=== PATIENT | female | born 1995 | race Caucasian/White ===

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

== ENCOUNTER 2017-05-05 17:55 | Emergency (ER) | payer OTHER ==
[~2017-05-05] VITALS: Ht 162.6 cm; Wt 57.6 kg
[~2017-05-05 17:55] MED LIST changes: +DEPO-ESTRAD5 MG/1 ML IM; +MOBIC7.5 MG PO; +PREDNISONE 20 M20 MG PO; +XANAX 0.25 MG0.25 MG PO
[2017-05-05 18:10] LABS: URINE BILIRUBIN NEGATIVE (Negative); URINE BLOOD NEGATIVE (Negative); URINE COLOR YELLOW; URINE GLUCOSE-RANDOM* NEGATIVE (Negative); URINE KETONES NEGATIVE (Negative); URINE NITRITE NEGATIVE (Negative); URINE PROTEIN (DIPSTICK) NEGATIVE (Negative); URINE UROBILINOGEN 0.2 E.U./dl (0.2-1.0)
[2017-05-05 19:04] LABS: ABSOLUTE NEUTROPHILS 4.9 thou/uL (1.4-8.2); BASOPHILS 0.5 % (0.0-2.0); EOSINOPHILS 0.8 % (0.0-3.0); LYMPHOCYTES 41.9 % (24.0-44.0); MCH 30.1 pg (26.0-34.0); MCHC 34.1 g/dL (28.0-37.0); MCV 88.1 fL (80.0-100.0); MONOCYTES 6.6 % (1.0-8.0); PLATELET COUNT 321 thou/uL (150-400); POLYS 50.2 % (36.0-66.0); RBC 4.66 mil/uL (4.20-5.00); RDW 12.9 % (10.5-14.5); WBC 9.7 thou/uL (4.0-11.0)
[2017-05-05 19:07] LABS: MANUAL DIFF NO
[2017-05-05 19:12] LABS: CALCIUM 9.7 mg/dL (8.5-10.1); CREATININE 0.6 mg/dL (0.6-1.0); POTASSIUM 3.2 mmol/L (3.5-5.1)
[2017-05-05 19:18] LABS: ALBUMIN 4.4 g/dL (3.4-5.0); TOTAL BILIRUBIN 0.3 mg/dL (<0.1-1.0); TOTAL PROTEIN 7.5 g/dL (6.4-8.2)
[2017-05-05] MEDS ORDERED: BEANO300 UNIT PO (19:38)
[2017-05-05 19:52] VITALS: BP 123/76
== END 2017-05-05 19:53 | disposition home or self-care (01) ==
LOC: ER 17:55
PROVIDERS: Physician Assistant
DX: R14.0 Abdominal distension (gaseous) (principal); Z87.891 Personal history of nicotine dependence

== ENCOUNTER 2017-10-04 21:46 | Emergency (ER) | payer OTHER ==
[~2017-10-04] VITALS: Ht 162.6 cm; Wt 56.7 kg
[~2017-10-04 21:46] MED LIST changes: +BEANO300 UNIT PO
[2017-10-04 22:55] LABS: URINE BILIRUBIN NEGATIVE (Negative); URINE BLOOD NEGATIVE (Negative); URINE CLARITY CLEAR; URINE COLOR YELLOW; URINE GLUCOSE-RANDOM* NEGATIVE (Negative); URINE KETONES NEGATIVE (Negative); URINE LEUKOCYTES-REFLEX NEGATIVE (Negative); URINE NITRITE-REFLEX NEGATIVE (Negative); URINE PROTEIN (DIPSTICK) NEGATIVE (Negative); URINE SPECIFIC GRAVITY 1.015 (1.005-1.035); URINE UROBILINOGEN 0.2 E.U./dl (0.2-1.0)
[2017-10-04 23:37] LABS: ABSOLUTE NEUTROPHILS 3.6 thou/uL (1.4-8.2); BASOPHILS 0.6 % (0.0-2.0); EOSINOPHILS 1.5 % (0.0-3.0); HEMATOCRIT 43.3 % (37.0-47.0); HEMOGLOBIN 14.6 gm/dL (12.0-15.0); LYMPHOCYTES 44.3 % (24.0-44.0); MCHC 33.7 g/dL (28.0-37.0); MCV 88.8 fL (80.0-100.0); MONOCYTES 6.8 % (1.0-8.0); PLATELET COUNT 309 thou/uL (150-400); POLYS 46.8 % (36.0-66.0); RBC 4.88 mil/uL (4.20-5.00); RDW 13.5 % (10.5-14.5); WBC 7.7 thou/uL (4.0-11.0)
[2017-10-04 23:39] LABS: CALCIUM 9.9 mg/dL (8.5-10.1); CREATININE 0.6 mg/dL (0.6-1.0); POTASSIUM 3.2 mmol/L (3.5-5.1)
[2017-10-04 23:45] LABS: ALBUMIN 4.3 g/dL (3.4-5.0); TOTAL BILIRUBIN 0.3 mg/dL (<0.1-1.0)
[2017-10-04] MEDS ORDERED: PEPCID20 MG PO (23:47)
[2018-03-08] MEDS ORDERED: MEDROLDOSEPACK PO ×2 (20:12→20:56)
== END 2017-10-05 00:02 | disposition home or self-care (01) ==
LOC: ER 21:46
PROVIDERS: Emergency Medicine
DX: K59.00 Constipation, unspecified (principal); E87.6 Hypokalemia; Z87.891 Personal history of nicotine dependence

== ENCOUNTER 2018-08-08 06:07 | Emergency (ER) | payer OTHER ==
[~2018-08-08] VITALS: Ht 162.6 cm; Wt 63.5 kg
[~2018-08-08 06:07] MED LIST changes: +MEDROLDOSEPACK PO; +PEPCID20 MG PO
[2018-08-08 07:14] LABS: ABSOLUTE NEUTROPHILS 3.3 thou/uL (1.4-8.2); BASOPHILS 0.6 % (0.0-2.0); EOSINOPHILS 1.1 % (0.0-3.0); HEMATOCRIT 41.9 % (37.0-47.0); HEMOGLOBIN 14.4 gm/dL (12.0-15.0); LYMPHOCYTES 41.5 % (24.0-44.0); MCH 30.1 pg (26.0-34.0); MCHC 34.4 g/dL (28.0-37.0); MCV 87.5 fL (80.0-100.0); MONOCYTES 7.1 % (1.0-8.0); PLATELET COUNT 311 thou/uL (150-400); POLYS 49.7 % (36.0-66.0); RBC 4.79 mil/uL (4.20-5.00); RDW 12.9 % (10.5-14.5); WBC 6.6 thou/uL (4.0-11.0)
[2018-08-08 07:17] LABS: CALCIUM 9.9 mg/dL (8.5-10.1); CREATININE 0.7 mg/dL (0.6-1.0); POTASSIUM 3.6 mmol/L (3.5-5.1)
[2018-08-08 08:39] VITALS: BP 107/57
--- NOTE | 2018-08-08 22:15 | EKG ---
[address] [address] ELECTROCARDIOGRAM REPORT Name: MELISSA SEVILLA Room #: DEP [facility]#: [id number] Admission: 08/08/18 Attend Phys: Discharge: 08/08/18 Date of : [birth year] Report #: [id number] THIS REPORT FOR: //name// [facility] ED Test Date: 2018-08-08 Test Time: 06:21:26 Pat Name: MELISSA SEVILLA Department: Room: Gender: F Record Librarian: STACEY : 1995 Requested By: Alma Pride Order Number: [id number] MD: Nader Flanagan Measurements Intervals [place] Rate: 86 P: 24 [place]: 152 QRS: 61 QRSD: 105 T: 37 QT: 363 QTc: 434 Interpretive Statements Sinus rhythm No previous ECG available for comparison Electronically Signed On 08-08-2018 22:15:01 [employer] by Nader Flanagan [email or web address] <ELECTRONICALLY SIGNED> By: Nader Flanagan MD 08/08/18 2215 0621 0621 MD ROSALEE Ayala
== END 2018-08-08 08:40 | disposition home or self-care (01) ==
LOC: ER 06:07
PROVIDERS: Student in an Organized Health Care Education/Training Program
DX: R20.2 Paresthesia of skin (principal); G93.89 Other specified disorders of brain; Z87.891 Personal history of nicotine dependence